=== PATIENT | male | born 1990 | race American Indian/Alaskan Native ===

== ENCOUNTER 2018-03-19 13:53 | Emergency (ER) | payer OTHER ==
[2018-03-19 14:05] VITALS: BP 142/76
--- NOTE | 2018-03-19 14:49 | XRay Report ---
RIGHT ANKLE, 3 views: History: right ankle pain. Findings: Mild soft tissue swelling is identified. No acute osseous abnormality or joint pathology is identified. The fifth metatarsal base is intact. Impression: Soft tissue swelling. No acute osseous injury.
--- NOTE | 2018-03-19 16:15 | Emergency Department Report ---
ED Lower Extremity HPI - General Chief Complaint: Extremity Injury, Lower Stated Complaint: (R) ANKLE SWOLLEN Time Seen by Provider: 03/19/18 15:40 Source: patient Mode of arrival: Wheelchair Limitations: No Limitations - History of Present Illness Initial Comments: PT is a 27-year-old male comes to the emergency room complaining of right foot swelling. He states that he injured it on Monday when he attempted to catch a person that was about to fall. He everted his ankle. It has been swollen since. He is walking on it but is guarded with pain. MD Complaint: ankle injury -: Sudden, days(s) (right 3) Injury: Ankle: Right Type of Injury: eversion Place: home Severity: mild Improves With: nothing Worsens With: weight bearing, movement Context: direct blow Treatments Prior to Arrival: cold therapy, NSAIDS - Related Data Previous Rx's Medication Instructions Recorded Last Taken Type ALBUTEROL Inhaler (OR & NICU) 1 - 2 puff IH QID PRN #2 inha 05/27/14 Unknown Rx [ProAir HFA Inhaler] traMADol [Ultram] 50 mg PO Q6HR PRN #10 tablet 03/19/18 Unknown Rx Allergies Allergy/AdvReac Type Severity Reaction Status Date / Time No Known Allergies Allergy Verified 05/27/14 22:36 ED Review of Systems ROS: Stated complaint: (R) ANKLE SWOLLEN Other details as noted in HPI Comment: All other systems reviewed and negative Eyes: denies: as per HPI, eye pain ENT: denies: throat pain Respiratory: denies: orthopnea Cardiovascular: denies: dyspnea on exertion Endocrine: denies: flushing Gastrointestinal: denies: nausea Genitourinary: denies: urgency Musculoskeletal: as per HPI, other (right ankle pain) Skin: denies: lesions Neurological: denies: headache Psychiatric: denies: anxiety Hematological/Lymphatic: denies: easy bleeding ED Past Medical Hx - Past Medical History Previous Medical History?: No Additional medical history: denies - Surgical History Past Surgical History?: No Additional Surgical History: denies - Family History Family history: no significant - Social History Smoking Status: Current Every Day Smoker Substance Use Type: None - Medications Home Medications: Home Medications Medication Instructions Recorded Confirmed Last Taken Type ALBUTEROL Inhaler (OR & NICU) 1 - 2 puff IH QID PRN #2 inha 05/27/14 Unknown Rx [ProAir HFA Inhaler] traMADol [Ultram] 50 mg PO Q6HR PRN #10 tablet 03/19/18 Unknown Rx ED Physical Exam - General Limitations: No Limitations General appearance: alert - Head Head exam: Present: atraumatic - Eye Eye exam: Present: normal appearance - ENT ENT exam: Present: normal exam - Neck Neck exam: Present: normal inspection - Respiratory Respiratory exam: Present: normal lung sounds bilaterally - Cardiovascular Cardiovascular Exam: Present: regular rate - GI/Abdominal GI/Abdominal exam: Present: soft, normal bowel sounds - Rectal Rectal exam: Present: deferred - Expanded Lower Extremity Exam Right Knee exam: Present: full ROM Lower Leg exam: Present: full ROM Ankle exam: Present: full ROM, tenderness, swelling (over her lateral malleolus area). Absent: abrasion, laceration (swollen over the lateral malleus malleolus area), ecchymosis, deformity, crepidus, dislocation, erythema, anterior draw sign Foot/Toe exam: Present: normal inspection (+2 DP bilaterally. Rapid cap refill. Neurovascularly intact distal.) Neuro vascular tendon exam: Present: no vascular compromise. Absent: pulse deficit Gait: Positive: observed and limited by pain - Back Exam Back exam: Present: normal inspection - Neurological Exam Neurological exam: Present: alert, oriented X3 - Skin Skin exam: Present: warm, dry, intact ED Course Vital Signs 03/19/18 03/19/18 14:03 17:06 Temperature 98.2 F Pulse Rate 86 Respiratory 18 16 Rate Blood Pressure 142/76 O2 Sat by Pulse 98 Oximetry ED Lower Extremity MDM - Medical Decision Making X-ray tonight is negative for acute fracture Will immobilize and crutch the patient. Explained to him that this was for craig [place]. Patient will be discharged with follow-up with orthopedics. Patient is neurovascularly intact. - Differential Diagnosis RO FX Critical care attestation.: If time is entered above; I have spent that time in minutes in the direct care of this critically ill patient, excluding procedure time. ED Disposition Clinical Impression: Ankle sprain, Fall Disposition: DC-01 TO HOME OR SELFCARE Is pt being admited?: No Does the pt Need Aspirin: No Condition: Stable Additional Instructions: ICE REST ELEVATE GIL AND CRUTCHES FOLLOW UP ORTHO REFERRAL BELOW MOTRIN OR TYLENOL FOR MILD PAIN ULTRAM FOR SEVERE PAIN DO NOT DELAY SEEING ORTHO PER OUR DISCUSSION Prescriptions: traMADol [Ultram] 50 mg PO Q6HR PRN #10 tablet PRN Reason: Pain Referrals: PRIMARY CARE, [Primary Care Provider] - 3-5 Days JULIÁN RUTLEDGE MD [Staff Physician] - 3-5 Days Time of Disposition: 16:21
[2018-03-19] MEDS ORDERED: NORCO 5/325 PO ONE (16:19)
== END 2018-03-19 17:35 | disposition home or self-care (01) ==
LOC: ED 13:53
DX: S93.401A Sprain of unspecified ligament of right ankle, initial encounter (principal); F17.200 Nicotine dependence, unspecified, uncomplicated; X50.9XXA Other and unspecified overexertion or strenuous movements or postures, initial encounter; Y93.89 Activity, other specified; Y92.098 Other place in other non-institutional residence as the place of occurrence of the external cause; Y99.8 Other external cause status
CPT/HCPCS: 99283

== ENCOUNTER 2021-06-24 19:00 | Emergency (ER) | payer SELFPAY ==
[2021-06-24] MEDS ORDERED: traMADol 50 MG TAB PO ONE (22:29)
--- NOTE | 2021-06-24 23:02 | Emergency Department Report ---
ED General Adult HPI - General Chief complaint: Wound/Laceration Stated complaint: CUT MIDDLE FINGER Time Seen by Provider: 06/24/21 22:28 Source: patient Mode of arrival: Ambulatory Limitations: No Limitations - History of Present Illness Initial comments: Patient is a 31-year-old [place] who presents for laceration to the left dorsal middle finger. States he accidentally bumped his finger against pigment grinder. Causing laceration approximately 2 cm. There is no nerve or muscle or tendon damage. Bleeding was controlled by direct pressure applied in the field. Tetanus shot is up-to-date. Patient states pain at 2/10 exacerbated by palpation. There is no deformity no contamination no bleeding. Patient drove self to ED patient alert and oriented x3 denies any other injury. - Related Data Previous Rx's Medication Instructions Recorded Last Taken Type Albuterol Mdi (or & Nicu Only) 1 - 2 puff IH QID PRN #2 inha 05/27/14 Unknown Rx [ProAir HFA Inhaler] traMADoL [Ultram] 50 mg PO Q6HR PRN #10 tablet 03/19/18 Unknown Rx cephALEXin [Keflex] 500 mg PO Q8HR 7 Days #21 cap 06/24/21 Unknown Rx traMADoL [Ultram] 50 mg PO Q6HR PRN #12 tablet 06/24/21 Unknown Rx Allergies Allergy/AdvReac Type Severity Reaction Status Date / Time No Known Allergies Allergy Verified 05/27/14 22:36 ED Review of Systems ROS: Stated complaint: CUT MIDDLE FINGER Other details as noted in HPI Constitutional: denies: chills, fever Eyes: denies: eye pain, eye discharge, vision change ENT: denies: ear pain, throat pain Respiratory: denies: cough, shortness of breath, wheezing Cardiovascular: denies: chest pain, palpitations Endocrine: no symptoms reported Gastrointestinal: denies: abdominal pain, nausea, diarrhea Genitourinary: denies: urgency, dysuria Musculoskeletal: denies: back pain, joint swelling, arthralgia Skin: other (Laceration left dorsal middle finger) Neurological: denies: headache, weakness, paresthesias Psychiatric: denies: anxiety, depression Hematological/Lymphatic: denies: easy bleeding, easy bruising ED Past Medical Hx - Past Medical History Additional medical history: denies - Surgical History Additional Surgical History: denies - Social History Smoking Status: Current Every Day Smoker Substance Use Type: None - Medications Home Medications: Home Medications Medication Instructions Recorded Confirmed Last Taken Type Albuterol Mdi (or & Nicu Only) 1 - 2 puff IH QID PRN #2 inha 05/27/14 Unknown Rx [ProAir HFA Inhaler] traMADoL [Ultram] 50 mg PO Q6HR PRN #10 tablet 03/19/18 Unknown Rx cephALEXin [Keflex] 500 mg PO Q8HR 7 Days #21 cap 06/24/21 Unknown Rx traMADoL [Ultram] 50 mg PO Q6HR PRN #12 tablet 06/24/21 Unknown Rx ED Physical Exam - General Limitations: No Limitations General appearance: alert, in no apparent distress - Head Head exam: Present: normocephalic, normal inspection - Eye Eye exam: Present: normal appearance, EOMI Pupils: Present: normal accommodation - ENT ENT exam: Present: mucous membranes moist - Neck Neck exam: Present: normal inspection, full ROM. Absent: tenderness - Respiratory Respiratory exam: Present: normal lung sounds bilaterally. Absent: respiratory distress, wheezes, stridor - Cardiovascular Cardiovascular Exam: Present: regular rate, normal rhythm, normal heart sounds. Absent: systolic murmur, diastolic murmur, rubs, gallop - GI/Abdominal GI/Abdominal exam: Present: soft, normal bowel sounds. Absent: distended, tenderness - Rectal Rectal exam: Present: deferred - Extremities Exam Extremities exam: Present: full ROM, normal capillary refill - Expanded Upper Extremity Exam Left Hand Wrist exam: Present: tenderness, laceration (2 cm dorsal left middle finger). Absent: swelling, ecchymosis, deformity, crepidus, dislocation, erythema, nail avulsion, subungual hematoma Neuro motor exam: Present: wrist extension intact, thumb opposition intact, thumb IP flexion intact, thumb adduction intact, fingers 2-5 abduction intact Neurosensory exam: Present: radial nerve intact Vascular: Present: normal capillary refill - Back Exam Back exam: Present: normal inspection, full ROM. Absent: paraspinal tenderness, vertebral tenderness - Neurological Exam Neurological exam: Present: alert, oriented X3, CN II-XII intact, normal gait, reflexes normal. Absent: motor sensory deficit - Expanded Neurological Exam Expanded Patient oriented to: Present: person, place, time Speech: Present: fluid speech Motor strength exam: RUE: 5, LUE: 5 DTR: bicep (R): 1+, bicep (L): 1+, tricep (R): 1+, tricep (L): 1+ Best Eye Response (Alicia): (4) open spontaneously Best Motor Response ([place]): (6) obeys commands Best Verbal Response (Alicia): (5) oriented [place] Total: 15 - Psychiatric Psychiatric exam: Present: normal affect, normal mood - Skin Skin exam: Present: warm (Laceration asthma), dry, intact, normal color, other. Absent: rash ED Course Vital Signs 06/24/21 19:45 Temperature 98.7 F Pulse Rate 72 Respiratory 18 Rate Blood Pressure 157/82 O2 Sat by Pulse 100 Oximetry - Laceration /Wound Repair Left Posterior Distal Finger Wound Location: upper extremity Wound Length (cm): 2 Wound's Depth, Shape: superficial Wound Explored: clean Irrigated w/ Saline (ccs): 30 Betadine Prep?: Yes Anesthesia: 1% Lidocaine Volume Anesthetic (ccs): 1 Wound Debrided: minimal Wound Repaired With: sutures Suture Size/Type: 4:0, proline Number of Sutures: 7 (Running) Layer Closure?: No Sterile Dressing Applied?: Yes Progress: Left dorsal middle finger distal laceration 2 cm superficial. No nerve or muscle or tendon damage. Flexion extension intact via direct opposition. There is no bleeding. Anesthesia with 1% lidocaine. Site cleaned with Betadine solution. Digital block was obtained. Wound irrigated with 30 cc sterile saline. Wound closed with three-point 0 Prolene versus 7 sutures running edges well approximated, bleeding well controlled. Sterile dressing applied. Patient given wound care instructions verbalized understanding of same. CMS remains intact. ED Medical Decision Making - Medical Decision Making Left middle finger laceration see procedure note. All bleeding controlled. Distal pulses remain intact. WEBFOCUS DEVELOPER less than 3 seconds bilaterally head men's golf coach are equal. Distal pulses are equal. There is no neuromuscular tendon damage. Patient given wound care instructions verbalized understanding of same. Patient will follow-up primary care doctor in 2 days for wound check. Return to the ED in 7 to 10 days for suture removal. Patient DC'd home in stable condition at this time. Critical care attestation.: If time is entered above; I have spent that time in minutes in the direct care of this critically ill patient, excluding procedure time. ED Disposition Clinical Impression: Finger laceration Qualifiers: Encounter type: initial encounter Finger: middle finger Damage to nail status: without damage Foreign body presence: without foreign body Laterality: left Qualified Code(s): S61.213A - Laceration without foreign body of left middle finger without damage to nail, initial encounter Disposition: HOME / SELF CARE / HOMELESS Is pt being admited?: No Does the pt Need Aspirin: No Condition: Stable Instructions: Laceration Care, Adult, Sutures, [place], or Adhesive Wound Cl osure Additional Instructions: Clean with soap and water daily. Take medications as prescribed. Follow-up with your doctor in 2 days for wound check. Return in 7 to 10 days for suture removal. Return to emergency department should symptoms worsen. Prescriptions: cephALEXin [Keflex] 500 mg PO Q8HR 7 Days #21 cap traMADoL [Ultram] 50 mg PO Q6HR PRN #12 tablet PRN Reason: Pain Referrals: AFIA RODRIGUEZ MD [Staff Physician] - 3-5 Days Forms: Work/School Release Form(ED) Time of Disposition: 23:07
[2021-06-24 23:40] VITALS: BP 152/76
== END 2021-06-25 00:28 | disposition home or self-care (01) ==
LOC: ED 19:00
DX: S61.213A Laceration without foreign body of left middle finger without damage to nail, initial encounter (principal); F17.200 Nicotine dependence, unspecified, uncomplicated; Z79.899 Other long term (current) drug therapy; W26.8XXA Contact with other sharp object(s), not elsewhere classified, initial encounter; Y93.89 Activity, other specified; Y92.89 Other specified places as the place of occurrence of the external cause; Y99.8 Other external cause status
CPT/HCPCS: 99282